=== PATIENT | female | born 1990 | race African-American/Black ===

== ENCOUNTER 2016-08-09 17:57 | Emergency (ER) | payer SELFPAY ==
--- NOTE | 2016-08-09 18:03 | ER Document Report ---
ED Medical Screen (RME) - General Stated Complaint: HEADACHE Time seen by provider: 18:01 Mode of Arrival: Ambulatory Information source: Patient Notes: 26-year-old female is to ED for headache. She said that this headache started about a month ago and she'll have it for couple days in a couple days with no headache and then a couple days with headache and this is been going on for months. She states she's been taken Excedrin Migraine for her headaches. She she states she has not seen a doctor if she does not have a local doctor. Last menstrual period 07/19/2016. She has had an increase in sensitivity to light today. She has been nauseated off and on with these headaches. I have greeted and performed a rapid initial assessment of this patient. A comprehensive ED assessment and evaluation of the patient, analysis of test results and completion of medical decision making process will be conducted by an additional ED providers. TRAVEL OUTSIDE OF THE [place] IN LAST 30 DAYS: No - Related Data Allergies/Adverse Reactions: No Known Allergies Allergy (Verified 08/09/16 17:58) Past Medical History Pulmonary Medical History: Reports: Hx Asthma - Immunizations Hx Diphtheria, Pertussis, Tetanus Vaccination: Yes Physical Exam - Vital signs Vitals: Temp Pulse Resp BP Pulse Ox 97.9 F 77 14 130/85 H 100 08/09/16 18:00 08/09/16 18:00 08/09/16 18:00 08/09/16 18:00 08/09/16 18:00 Course - Vital Signs Vital signs: Temp Pulse Resp BP Pulse Ox 97.9 F 77 14 130/85 H 100 08/09/16 18:00 08/09/16 18:00 08/09/16 18:00 08/09/16 18:00 08/09/16 18:00
[2016-08-09] MEDS ORDERED: DIPHENHYDRAMINE HCL 25 MG CAPSULE PO ONE (18:04)
[2016-08-09] MEDS ORDERED: IBUPROFEN 600 MG TABLET PO ONE (18:04)
[2016-08-09] MEDS ORDERED: PROCHLORPERAZINE MALEATE 10 MG TABLET PO ONE (18:04)
[2016-08-09] MEDS ORDERED: BUTALB/ACETAMINOPHEN/CAFFEINE 1 TAB EACH PO ONE (18:55)
--- NOTE | 2016-08-09 18:58 | ER Document Report ---
ED General - General Chief Complaint: Headache >24 hrs old Stated Complaint: HEADACHE Mode of Arrival: Ambulatory TRAVEL OUTSIDE OF THE [place] IN LAST 30 DAYS: No - HPI Patient complains to provider of: headache Notes: Patient coming in for evaluation of headache patient states headache intermittent ongoing for months denies trauma fever chills nausea vomiting diarrhea. Patient states she's not been evaluated for headaches states most pain is in the front of her head and does go also into the back of her head down her neck. Patient otherwise nontoxic looking states she has no relief with Excedrin at home. - Related Data Allergies/Adverse Reactions: No Known Allergies Allergy (Verified 08/09/16 17:58) Past Medical History - General Information source: Patient - Social History Smoking Status: Never Smoker Chew tobacco use (# tins/day): No Frequency of alcohol use: None Drug Abuse: None Family History: Reviewed & Not Pertinent Patient has suicidal ideation: No Patient has homicidal ideation: No Pulmonary Medical History: Reports: Hx Asthma Renal/ Medical History: Denies: Hx Peritoneal Dialysis Surgical Hx: Negative - Immunizations Hx Diphtheria, Pertussis, Tetanus Vaccination: Yes Review of Systems - Review of Systems Constitutional: No symptoms reported EENT: No symptoms reported Cardiovascular: No symptoms reported Respiratory: No symptoms reported Gastrointestinal: No symptoms reported Genitourinary: No symptoms reported Female Genitourinary: No symptoms reported Musculoskeletal: No symptoms reported Skin: No symptoms reported Hematologic/Lymphatic: No symptoms reported Neurological/Psychological: Headaches -: Yes All other systems reviewed and negative Physical Exam - Vital signs Vitals: Temp Pulse Resp BP Pulse Ox 97.9 F 77 14 130/85 H 100 08/09/16 18:00 08/09/16 18:00 08/09/16 18:00 08/09/16 18:00 08/09/16 18:00 Interpretation: Normal - General General appearance: Appears well, Alert - HEENT Head: Normocephalic, Atraumatic Eyes: Normal Pupils: PERRL - Respiratory Respiratory status: No respiratory distress Chest status: Nontender Breath sounds: Normal Chest palpation: Normal - Cardiovascular Rhythm: Regular Heart sounds: Normal auscultation Murmur: No - Abdominal Inspection: Normal Distension: No distension Bowel sounds: Normal Tenderness: Nontender Organomegaly: No organomegaly - Back Back: Normal, Nontender - Extremities General upper extremity: Normal inspection, Nontender, Normal color, Normal ROM , Normal temperature General lower extremity: Normal inspection, Nontender, Normal color, Normal ROM , Normal temperature, Normal weight bearing. No: Elsie's sign - Neurological Neuro grossly intact: Yes Cognition: Normal Orientation: AAOx4 Osse[place] Coma Scale Eye Opening: Spontaneous Anthony Coma Scale Verbal: Oriented [place] Coma Scale Motor: Obeys Commands Anthony Coma Scale Total: 15 Speech: Normal Motor strength normal: LUE, RUE, LLE, RLE Sensory: Normal - Psychological Associated symptoms: Normal affect, Normal mood - Skin Skin Temperature: Warm Skin Moisture: Dry Skin Color: Normal Course - Re-evaluation Re-evalutation: 08/09/16 22:55 The patient presents with headache without signs of FREIGHT TRUCKER bleed, stroke, infection , or other serious etiology. The patient is neurologically intact. Given the extremely low risk of these diagnoses further testing and evaluation for these possibilities does not appear to be indicated at this time. The patient has been instructed to return if the symptoms worsen or change in any way.. - Vital Signs Vital signs: Temp Pulse Resp BP Pulse Ox 98.2 F 82 16 116/78 100 08/09/16 19:34 08/09/16 19:34 08/09/16 19:34 08/09/16 19:34 08/09/16 19:34 Discharge - Discharge Clinical Impression: Headache Qualifiers: Headache type: tension-type Headache chronicity pattern: unspecified pattern Intractability: not intractable Qualified Code(s): G44.209 - Tension-type headache, unspecified, not intractable Condition: Good Disposition: HOME, SELF-CARE Instructions: Tension Headache ([facility]) Additional Instructions: Follow-up with your primary care physician. Prescriptions: Butalb/Acetaminophen/Caffeine [Fioricet 50-300-40 mg Capsule] 1 cap PO Q4 PRN # 20 cap PRN Reason: Forms: Return to Work
[2016-08-09 19:37] VITALS: BP 116/78
== END 2016-08-09 19:36 | disposition home or self-care (01) ==
LOC: ER 17:57
DX: G44.209 Tension-type headache, unspecified, not intractable (principal)
CPT/HCPCS: 99283; J3490; S0183

== ENCOUNTER 2019-04-20 07:49 | Emergency (ER) | payer SELFPAY ==
[2019-04-20 07:58] VITALS: BP 113/77
[2019-04-20] MEDS ORDERED: LIDOCAINE 2% VISCOUS SOLN 20 ML UDCUP PO ONE (08:34)
[2019-04-20] MEDS ORDERED: PENICILLIN V POTASSIUM 500 MG TABLET PO ONE (08:35)
--- NOTE | 2019-04-20 08:41 | ER Document Report ---
HPI - HPI Patient complains to provider of: dental pain Time Seen by Provider: 04/20/19 08:05 Pain Level: 3 Context: 29-year-old healthy female presents the emergency department chief complaint of dental pain that started yesterday. Patient noticed that she was a little sore and the pain subsided but then her face started to swell up on the right side. Patient states that she then woke up this morning with swelling and pain prompting her to get seen in the emergency department. She states that the #3 tooth is broken off but she also has some decay of the #5 tooth on the bugle side at the gingival border. Patient denies any difficulty swallowing, denies fevers or chills, denies nausea or vomiting, denies any tongue swelling, denies any neck stiffness, currently denies any swelling. No other complaints - REPRODUCTIVE LMP: 04/04/19 Reproductive: DENIES: : Past Medical History - Social History Smoking Status: Never Smoker Chew tobacco use (# tins/day): No Frequency of alcohol use: None Drug Abuse: None Family History: Reviewed & Not Pertinent Patient has suicidal ideation: No Patient has homicidal ideation: No Pulmonary Medical History: Reports: Hx Asthma Renal/ Medical History: Denies: Hx Peritoneal Dialysis - Immunizations Hx Diphtheria, Pertussis, Tetanus Vaccination: Yes Vertical Provider Document - CONSTITUTIONAL Notes: PHYSICAL EXAMINATION: Reviewed vital signs and charting by RN GENERAL: Alert, interacts well. No acute distress. HEAD: Normocephalic, atraumatic. EYES: Pupils equal and round. Extraocular movements intact. ENT: Oral mucosa moist, tongue midline. #3 tooth broken off at the root, crown is completely missing, #5 tooth in the buccal side with some decay. NECK: Full range of motion. Trachea midline. LUNGS: Clear to auscultation bilaterally, no wheezes, rales, or rhonchi. No respiratory distress. HEART: Regular rate and rhythm. No murmur ABDOMEN: soft, non-tender. No distention. Bowel sounds present EXTREMITIES: Moves all 4 extremities spontaneously. No edema, No cyanosis. PSYCH: Normal affect, normal mood. SKIN: Warm, dry, normal turgor. No rashes or lesions noted. - INFECTION CONTROL TRAVEL OUTSIDE OF THE [place] IN LAST 30 DAYS: No Course - Re-evaluation Re-evalutation: 04/20/19 08:43 Presentation is most consistent with likely an infected tooth. Airway is patent. Vitals within normal limits. Patient is able swallow without any difficulty. There is no significant facial swelling. No evidence of Frederick angina, apical abscess, or airway obstruction. Patient will be started on antibiotics. I've instructed to follow-up with dentistry as earliest ability for definitive management. At this time will discharge with return precautions and follow-up recommendations. Verbal discharge instructions given a the bedside and opportunity for questions given. Medication warnings reviewed. Patient is in agreement with this plan and has verbalized understanding of return precautions and the need for primary care follow-up in the next 24-72 hours. - Vital Signs Vital signs: Temp Pulse Resp BP Pulse Ox 97.4 F 73 16 113/77 100 04/20/19 07:50 04/20/19 07:50 04/20/19 07:50 04/20/19 07:50 04/20/19 07:50 Discharge - Discharge Clinical Impression: Tooth infection, Pain, dental Condition: Good Disposition: HOME, SELF-CARE Additional Instructions: You have been seen for dental pain. It is very important that you follow-up with a dentist for definitive care. You have been given a prescription of penicillin and you should take 1 tablet in the morning and 1 in the evening for 7 days. Please return if you develop fever greater than 101, swelling in your face, vomiting, difficulty breathing or swallowing, or any other symptoms that are concerning to you. For pain you should take ibuprofen 600 mg every 6 hours as needed. Prescriptions: Benzonatate [Tessalon Perles 100 mg Capsule] 100 mg PO Q8HP PRN #40 capsule PRN Reason: Penicillin V Potassium [Penicillin Vk 500 mg Tablet] 500 mg PO BID #14 tablet
== END 2019-04-20 08:48 | disposition home or self-care (01) ==
LOC: ER 07:49
DX: K04.7 Periapical abscess without sinus (principal); K08.9 Disorder of teeth and supporting structures, unspecified
CPT/HCPCS: 99282; J3490

== ENCOUNTER 2019-06-26 22:32 | Emergency (ER) | payer SELFPAY ==
[2019-06-26] MEDS ORDERED: IPRATROPIUM/ALBUTEROL 0.5-2.5 MG/3 ML AMPUL NEB ONE (22:36)
[2019-06-26] MEDS: ALBUTEROL SULFATE 0.083% NEB 2.5 MG/3 ML AMPUL NEB SCH ×2 (22:40→23:06)
[2019-06-26] MEDS ORDERED: METHYLPREDNISOLONE INJ 125 MG/2 ML SDV IM ONE (23:49)
--- NOTE | 2019-06-27 00:35 | RADIOLOGY REPORT (SQ) ---
EXAM DESCRIPTION: XR CHEST 2 VIEWS COMPLETED DATE/TME: 06/26/2019 23:49 CLINICAL HISTORY: 29 years, Female, cough/wheeze COMPARISON: 09/29/2014 NUMBER OF VIEWS: One TECHNIQUE: AP view the chest LIMITATIONS: None. FINDINGS: The lungs are clear. The heart is normal in size. There is no pneumothorax or pleural effusion. The bones are unremarkable. IMPRESSION: No acute cardiopulmonary abnormality copyright 2010 [employer]- All Rights Reserved
[2019-06-27 01:28] VITALS: BP 122/83
[2019-06-27] MEDS ORDERED: ALBUTEROL SULFATE HFA (90 MCG/PUFF) 8 GM MDI (1 MDI/ER DISP) IH ONE (01:36)
--- NOTE | 2019-06-27 01:40 | ER Document Report ---
ED Respiratory Problem - General Chief Complaint: Asthma Exacerbation Stated Complaint: DIFFICULTY BREATHING Time Seen by Provider: 06/27/19 01:23 Notes: Patient is a 29-year-old female that comes to the emergency department for chief complaint of wheezing and difficulty breathing since yesterday. She states that she ran out of her albuterol inhaler but she did have her nebulizer at home, however this did not seem to be helping. She had an occasional cough, denies fever, denies any other complaints. She denies smoking. She denies any other medical problems. She denies . TRAVEL OUTSIDE OF THE [place] IN LAST 30 DAYS: No - Related Data Allergies/Adverse Reactions: No Known Allergies Allergy (Verified 06/26/19 22:42) Home Medications: neb treatments Past Medical History - General Information source: Patient - Social History Smoking Status: Never Smoker Frequency of alcohol use: None Drug Abuse: None Lives with: Family Family History: Reviewed & Not Pertinent Patient has suicidal ideation: No Patient has homicidal ideation: No Pulmonary Medical History: Reports: Hx Asthma Renal/ Medical History: Denies: Hx Peritoneal Dialysis - Immunizations Hx Diphtheria, Pertussis, Tetanus Vaccination: Yes Review of Systems - Review of Systems Constitutional: No symptoms reported EENT: No symptoms reported Cardiovascular: No symptoms reported Respiratory: See HPI Gastrointestinal: No symptoms reported Genitourinary: No symptoms reported Female Genitourinary: No symptoms reported Musculoskeletal: No symptoms reported Skin: No symptoms reported Hematologic/Lymphatic: No symptoms reported Neurological/Psychological: No symptoms reported Physical Exam - Vital signs Vitals: Temp Pulse Resp BP Pulse Ox 97.5 F 108 H 26 H 119/87 H 93 06/26/19 22:37 06/26/19 22:37 06/26/19 22:37 06/26/19 22:37 06/26/19 22:37 - Notes Notes: GENERAL: Alert, interacts well. No acute distress. HEAD: Normocephalic, atraumatic. EYES: Pupils equal, round, and reactive to light. Extraocular movements intact. ENT: Oral mucosa moist, tongue midline. Oropharynx unremarkable. Airway patent. LUNGS: Clear to auscultation bilaterally, no wheezes, rales, or rhonchi. No respiratory distress. HEART: Regular rate and rhythm. No murmur ABDOMEN: Soft, non-tender. Non-distended. EXTREMITIES: Moves all 4 extremities spontaneously. No edema, normal radial and dorsalis pedis pulses bilaterally. No cyanosis. BACK: no cervical, thoracic, lumbar midline tenderness. No saddle anesthesia, normal distal neurovascular exam. Moves all extremities in full range of motion. NEUROLOGICAL: Alert and oriented x3. Normal speech. Cranial nerves II through XII grossly intact. PSYCH: Normal affect, normal mood. SKIN: Warm, dry, normal turgor. No rashes or lesions noted. Course - Re-evaluation Re-evalutation: It was reported to me that initially patient was wheezing and had an oxygen saturation of 93% on room air. On my evaluation she has already received the steroids, already had DuoNeb treatment, her lungs are clear, she has no wheezing, her oxygen saturation was rechecked and is 100%. She has no current symptoms. I did review chest x-ray from triage as well and this was normal. Patient states she is completely better and she is asking to leave. Presentation is most consistent with asthma exacerbation, discussed treatments, follow-up, return precautions. Patient states understanding and agreement with plan. - Vital Signs Vital signs: Temp Pulse Resp BP Pulse Ox 97.9 F 83 18 122/83 100 06/27/19 01:58 06/27/19 01:58 06/27/19 01:58 06/27/19 01:58 06/27/19 01:58 Discharge - Discharge Clinical Impression: Wheezing Asthma exacerbation Qualifiers: Asthma severity: moderate Asthma persistence: unspecified Qualified Code(s): J45.901 - Unspecified asthma with (acute) exacerbation Condition: Stable Disposition: HOME, SELF-CARE Additional Instructions: Your evaluation is consistent with an asthma exacerbation. Take the prednisone as prescribed to completion. Use your albuterol inhaler and spacer for the albuterol nebulizer as needed as prescribed. Follow-up with primary care for additional management. Return for any concerning or worsening symptoms including difficulty breathing, fever, or any other concerning or worsening symptoms. Prescriptions: Prednisone [Deltasone 20 mg Tablet] 3 tab PO DAILY 5 Days #15 tablet Albuterol Sulfate [Proair HFA Inhalation Aerosol 8.5 gm MDI] 2 puff IH Q4H PRN #1 mdi PRN Reason:
== END 2019-06-27 01:59 | disposition home or self-care (01) ==
LOC: ER 06-27 01:55
DX: J45.901 Unspecified asthma with (acute) exacerbation (principal); R05 Cough
CPT/HCPCS: 94640 ×2; 99284; 96372; 71046; J2930; J7620

== ENCOUNTER 2019-09-18 19:25 | Emergency (ER) | payer SELFPAY ==
[2019-09-18] MEDS ORDERED: IPRATROPIUM/ALBUTEROL 0.5-2.5 MG/3 ML AMPUL NEB ONE (19:41)
[2019-09-18] MEDS ORDERED: METHYLPREDNISOLONE INJ 125 MG/2 ML SDV IV ONE (19:42)
--- NOTE | 2019-09-18 19:44 | ER Document Report ---
ED Medical Screen (RME) - General Chief Complaint: Asthma Exacerbation Stated Complaint: DIFFICULTY BREATHING Time Seen by Provider: 09/18/19 19:39 Notes: HPI: 29-year-old female with asthma history presenting with 5 days of progressively worsening shortness of breath and wheezing that she believes is her asthma. Has been using an inhaler and her nebulizer at home without resolution of symptoms. No fevers I have greeted and performed a rapid initial assessment of this patient. A comprehensive ED assessment and evaluation of the patient, analysis of test results and completion of the medical decision making process will be conducted by additional ED providers PHYSICAL EXAMINATION: GENERAL: Slightly ill-appearing, well-nourished and in moderate acute distress. HEAD: Atraumatic, normocephalic. EYES: sclera anicteric, conjunctiva are normal. ENT: Moist mucous membranes. NECK: Normal range of motion LUNGS: Patient becomes mildly dyspneic with speaking. Inspiratory and expiratory wheezing in all lung winter. Pulse oximetry 93% on room air mildly hypoxic HEART: 2+ radial pulses bilaterally, mildly tachycardic ABD: limited by positioning for exam in triage. EXTREMITIES: no pitting or edema. No cyanosis. NEUROLOGICAL: No focal neurological deficits. Moves all extremities spontaneously and on command. PSYCH: Normal mood, normal affect. SKIN: Warm, Dry, normal turgor, no rashes or lesions noted. TRAVEL OUTSIDE OF THE [place] IN LAST 30 DAYS: No - Related Data Allergies/Adverse Reactions: No Known Allergies Allergy (Verified 09/18/19 19:39) Home Medications: albuterol Past Medical History Pulmonary Medical History: Reports: Hx Asthma Renal/ Medical History: Denies: Hx Peritoneal Dialysis - Immunizations Hx Diphtheria, Pertussis, Tetanus Vaccination: Yes Physical Exam - Vital signs Vitals: Temp Pulse Resp BP Pulse Ox 98.0 F 82 22 H 149/91 H 93 09/18/19 19:37 09/18/19 19:37 09/18/19 19:37 09/18/19 19:37 09/18/19 19:37 Course - Vital Signs Vital signs: Temp Pulse Resp BP Pulse Ox 98.0 F 82 22 H 149/91 H 93 09/18/19 19:37 09/18/19 19:37 09/18/19 19:37 09/18/19 19:37 09/18/19 19:37
[2019-09-18 20:35] LABS: ABSOLUTE EOSINOPHILS # (AUTO) 0.4 10^3/uL (0.0-0.6); ABSOLUTE LYMPHOCYTES (AUTO) 1.5 10^3/uL (0.5-4.7); ABSOLUTE MONOCYTES (AUTO) 0.4 10^3/uL (0.1-1.4); BASOPHILS % (AUTO) 0.5 % (0-2); EOSINOPHILS % (AUTO) 9.7 % (0-6); HEMATOCRIT 36.4 % (36.0-47.0); HEMOGLOBIN 12.3 g/dL (12.0-15.5); LYMPHOCYTES % (AUTO) 34.8 % (13-45); MEAN CORPUSCULAR HEMOGLOBIN 30.6 pg (27.0-33.4); MEAN CORPUSCULAR HGB CONC 33.7 g/dL (32.0-36.0); MEAN CORPUSCULAR VOLUME 91 fl (80-97); MONOCYTES % (AUTO) 9.6 % (3-13); PLATELET COUNT 188 10^3/uL (150-450); RED BLOOD COUNT 4.01 10^6/uL (3.72-5.28); SEGMENTED NEUTROPHILS % (AUTO) 45.4 % (42-78); TOTAL CELLS COUNTED % (AUTO) 100 %; WHITE BLOOD COUNT 4.3 10^3/uL (4.0-10.5)
[2019-09-18 21:01] LABS: ALBUMIN 4.8 g/dL (3.5-5.0); ALKALINE PHOSPHATASE 66 U/L (38-126); ANION GAP 12 (5-19); ASPARTATE AMINO TRANSFERASE 28 U/L (14-36); BILIRUBIN,DIRECT 0.2 mg/dL (0.0-0.4); BILIRUBIN,TOTAL 0.6 mg/dL (0.2-1.3); BLOOD UREA NITROGEN 10 mg/dL (7-20); CALCIUM 10.1 mg/dL (8.4-10.2); CARBON DIOXIDE 25 mmol/L (22-30); CHLORIDE 103 mmol/L (98-107); GLUCOSE 113 mg/dL (75-110); POTASSIUM 3.4 mmol/L (3.6-5.0); TOTAL PROTEIN 8.7 g/dL (6.3-8.2)
[2019-09-18] MEDS ORDERED: METHYLPREDNISOLONE INJ 125 MG/2 ML SDV ONE (21:52)
--- NOTE | 2019-09-18 22:41 | RADIOLOGY REPORT (SQ) ---
EXAM DESCRIPTION: XR CHEST 1 VIEW COMPLETED DATE/TME: 09/18/2019 21:53 CLINICAL HISTORY: 29 years, Female, SOB COMPARISON: Prior study from 06/27/2019 NUMBER OF VIEWS: One TECHNIQUE: Single frontal view of the chest was obtained portably LIMITATIONS: None. FINDINGS: Cardiac and mediastinal contours are normal in appearance. Lungs are clear. No pleural effusion or pneumothorax. IMPRESSION: No acute disease. copyright 2010 [employer]- All Rights Reserved
[2019-09-18] MEDS ORDERED: ALBUTEROL SULFATE HFA (90 MCG/PUFF) 8 GM MDI (1 MDI/ER DISP) IH ONE (22:45)
--- NOTE | 2019-09-18 22:57 | ER Document Report ---
HPI - HPI Patient complains to provider of: cough Time Seen by Provider: 09/18/19 22:40 Onset: Other - 5 days Pain Level: 3 Context: Patient presents complaining of cough shortness of breath and wheezing for the past 5 days. Patient states that she ran out of her asthma medications at home and feels that she is having an asthma flareup. Patient states these are typical symptoms of when she has had flareups in the past. Patient denies any fever. Patient denies any chest discomfort. Associated Symptoms: Nonproductive cough. denies: Chest pain, Fever, Nausea, Vomiting Exacerbated by: Denies Relieved by: Denies Similar symptoms previously: Yes Recently seen / treated by doctor: No - ROS ROS below otherwise negative: Yes Systems Reviewed and Negative: Yes All other systems reviewed and negative - CONSTITUTIONAL Constitutional: DENIES: Fever, Chills - CARDIOVASCULAR Cardiovascular: DENIES: Chest pain - RESPIRATORY Respiratory: REPORTS: Coughing - GASTROINTESTINAL Gastrointestinal: DENIES: Patient vomiting - REPRODUCTIVE Reproductive: DENIES: : - MUSCULOSKELETAL Musculoskeletal: DENIES: Back Pain - DERM Skin Color: Normal Skin Problems: None Past Medical History - General Information source: Patient - Social History Smoking Status: Never Smoker Frequency of alcohol use: None Drug Abuse: None Occupation: none Family History: Reviewed & Not Pertinent Patient has suicidal ideation: No Patient has homicidal ideation: No Pulmonary Medical History: Reports: Hx Asthma Renal/ Medical History: Denies: Hx Peritoneal Dialysis Surgical Hx: Negative - Immunizations Hx Diphtheria, Pertussis, Tetanus Vaccination: Yes Vertical Provider Document - CONSTITUTIONAL Agree With Documented VS: Yes Exam Limitations: No Limitations General Appearance: WD/WN, No Apparent Distress - INFECTION CONTROL TRAVEL OUTSIDE OF THE [place] IN LAST 30 DAYS: No - HEENT HEENT: Atraumatic, Normal ENT Exam, Normocephalic - NECK Neck: Normal Inspection, Supple - RESPIRATORY Respiratory: Breath Sounds Normal, No Respiratory Distress, Chest Non-Tender. negative: Rales, Rhonchi, Wheezing - CARDIOVASCULAR Cardiovascular: Regular Rate, Regular Rhythm, No Murmur - BACK Back: Normal Inspection - MUSCULOSKELETAL/EXTREMETIES Musculoskeletal/Extremeties: MAEW - NEURO Level of Consciousness: Awake, Alert, Appropriate Motor/Sensory: No Motor Deficit - DERM Integumentary: Warm, Dry, No Rash Course - Re-evaluation Re-evalutation: 02/28/20 22:54 Respirations even unlabored, patient nontoxic in appearance. Provider is evaluating patient after she is already had a nebulizer treatment. Wheezing resolved at this time. Patient appears stable for discharge at this time. Good return precautions discussed. Patient verbalized understanding and agrees with discharge plan of care. - Vital Signs Vital signs: Temp Pulse Resp BP Pulse Ox 98.0 F 82 17 110/78 100 09/18/19 19:37 09/18/19 19:37 09/18/19 22:04 09/18/19 22:04 09/18/19 22:04 - Laboratory Result Diagrams: 09/18/19 20:14 09/18/19 20:14 Laboratory results interpreted by me: 09/18/19 09/18/19 20:14 20:14 Eos % (Auto) 9.7 H Potassium 3.4 L Glucose 113 H Total Protein 8.7 H 09/18/19 22:55 Labs- Entire Visit 09/18/19 09/18/19 20:14 20:14 WBC 4.3 RBC 4.01 Hgb 12.3 Hct 36.4 MCV 91 MCH 30.6 MCHC 33.7 RDW 13.0 Plt Count 188 Lymph % (Auto) 34.8 [place] % (Auto) 9.6 Eos % (Auto) 9.7 H Baso % (Auto) 0.5 Absolute Neuts (auto) 2.0 Absolute Lymphs (auto) 1.5 Absolute Monos (auto) 0.4 Absolute Eos (auto) 0.4 Absolute Basos (auto) 0.0 Seg Neutrophils % 45.4 Sodium 140.0 Potassium 3.4 L Chloride 103 Carbon Dioxide 25 Anion Gap 12 BUN 10 Creatinine 0.95 Est GFR ( Amer) > 60 Est GFR (MDRD) Non-Af > 60 Glucose 113 H Calcium 10.1 Magnesium 2.2 Total Bilirubin 0.6 Direct Bilirubin 0.2 Neonat Total Bilirubin Not Reportable Neonat Direct Bilirubin Not Reportable Neonat Indirect Bili Not Reportable AST 28 ALT 16 Alkaline Phosphatase 66 Total Protein 8.7 H Albumin 4.8 - Diagnostic Test Radiology reviewed: Reports reviewed Discharge - Discharge Clinical Impression: Asthma exacerbation Qualifiers: Asthma severity: unspecified severity Asthma persistence: unspecified Qualified Code(s): J45.901 - Unspecified asthma with (acute) exacerbation Condition: Stable Disposition: HOME, SELF-CARE Additional Instructions: Return immediately for any new or worsening symptoms Followup with your primary care provider, call tomorrow to make a followup appointment ASTHMA: You have been diagnosed as having asthma. This is a condition where there is episodic tightness in the bronchial tubes. Allergies, infections, and polluted or cold air may be contributing factors. Emergency treatment of a severe asthma attack may include adrenaline shots, or bronchodilator aerosol. You may feel lightheaded, have a decreased exercise tolerance and a rapid pulse for an hour or two. Rest and get plenty of fluids. Home treatment of asthma requires bronchodilator drugs. These can be administered by injection, inhalation, or by mouth. Antibiotics and corticosteroids may be required for some patients. You should avoid chemical fumes, dusts, pollens, and exercising in very cold or dry air. If you smoke, stop!! If you develop a fever, increased wheezing, chest pain, or severe shortness of breath, you should contact the doctor immediately. STEROID MEDICATION: You have been given an injection of or oral medicine of the cortis one/steroid class. This medication is used to control inflammation or allergy. Andrea t is usually only given for a short period of time, until the acute process subsides. There are usually no side effects from short-term use of cortisone-like medications. Some persons feel an increased sense of well-being and are not sleepy at bedtime. Long-term use of cortisone medications is best avoided, unless required for a severe condition. If your condition does not remit, or relapses after the course of corticosteroid medication, you should consult your physician. INHALED BRONCHODILATORS: You have received treatment(s) of and/or prescription for an inhaled bronchodilator -- a medication which stimulates the airways in the lung to dilate. This improves the flow of air in asthma, bronchitis, and emphysema. These medicines have some similarity to adrenaline, and can cause similar side effects: shakiness, racing heart, and a sense of nervousness. These side effects decrease with time. Contact your doctor if these side effects are severe. Do not over-use the medicine. Too-frequent use of the inhaler may make it ineffective. Call your doctor if the inhaler is not controlling your symptoms at the prescribed doses. USE OF ACETAMINOPHEN: Acetaminophen may be taken for pain relief or fever control. It's much safer than aspirin, offering a wider range of "safe" dosages. It is safe during . Some brand names are Tylenol, Panadol, Datril, Anacin 3, Tempra, and Liquiprin. Acetaminophen can be repeated every four hours. The following are maximum recommended dosages: FOLLOW-UP CARE: If you have been referred to a physician for follow-up care, call the physicians office for an appointment as you were instructed or within the next two days. If you experience worsening or a significant change in your symptoms, notify the physician immediately or return to the Emergency Department at any time for re-evaluation. Prescriptions: Prednisone [Deltasone 20 mg Tablet] 3 tab PO DAILY 4 Days #12 tablet Albuterol Sulfate [Ventolin 0.083% Neb 2.5 mg/3 ml Ampul] 1 vial NEB Q4 PRN #30 vial PRN Reason: Referrals: [facility] [Provider Group] - Follow up as needed [facility] [Provider Group] - Follow up as needed
[2019-09-18 23:28] VITALS: BP 106/74
== END 2019-09-18 23:32 | disposition home or self-care (01) ==
LOC: ER 19:25
DX: J45.901 Unspecified asthma with (acute) exacerbation (principal)
CPT/HCPCS: 94640; 99285; 96374; 36415; 83735; 85025; 80053; 71045; J2930; J3490; J7620

== ENCOUNTER 2019-09-29 15:06 | Emergency (ER) | payer SELFPAY ==
[2019-09-29] MEDS ORDERED: IBUPROFEN 600 MG TABLET PO ONE (15:50)
--- NOTE | 2019-09-29 15:54 | ER Document Report ---
ED Respiratory Problem - General Chief Complaint: Cold Symptoms Stated Complaint: COLD SYMPTOMS Time Seen by Provider: 09/29/19 15:47 Primary Care Provider: [facility] [Provider Group] - Follow up as needed [facility] [Provider Group] - Follow up as needed Mode of Arrival: Ambulatory Information source: Patient Notes: 29-year-old female presented to ED for complaint of cough and fever. She states this started yesterday. She does have a history of asthma. She states she does not smoke. Patient is alert oriented respirations regular nonlabored speaking in full sentences. TRAVEL OUTSIDE OF THE [place] IN LAST 30 DAYS: No - HPI Patient complains to provider of: Cough, Other Onset: Yesterday - Fever Initiating Event: URI, Other - Flulike symptoms Quality of pain: Achy Severity: Mild Pain Level: 1 Cough: Nonproductive Sputum amount: None Associated symptoms: Fever, PND, Runny nose, Other - Body aches Similar symptoms previously: Yes Recently seen / treated by doctor: No - Related Data Allergies/Adverse Reactions: No Known Allergies Allergy (Verified 09/29/19 15:46) Past Medical History - General Information source: Patient - Social History Smoking Status: Never Smoker Frequency of alcohol use: None Drug Abuse: None Family History: Reviewed & Not Pertinent Patient has suicidal ideation: No Patient has homicidal ideation: No - Past Medical History Cardiac Medical History: Reports: None Pulmonary Medical History: Reports: Hx Asthma EENT Medical History: Reports: None Neurological Medical History: Reports: None Endocrine Medical History: Reports: None Renal/ Medical History: Reports: None Malignancy Medical History: Reports: None GI Medical History: Reports: None Musculoskeletal Medical History: Reports None Skin Medical History: Reports None Psychiatric Medical History: Reports: None Traumatic Medical History: Reports: None Infectious Medical History: Reports: None Surgical Hx: Negative Past Surgical History: Reports: None - Immunizations Immunizations up to date: Yes Hx Diphtheria, Pertussis, Tetanus Vaccination: Yes Review of Systems - Review of Systems Constitutional: Chills, Fever, Recent illness EENT: No symptoms reported, Nose discharge, Sinus discharge Cardiovascular: No symptoms reported Respiratory: Cough Gastrointestinal: No symptoms reported Genitourinary: No symptoms reported Female Genitourinary: No symptoms reported Musculoskeletal: Muscle pain - Body aches Skin: No symptoms reported Hematologic/Lymphatic: No symptoms reported Neurological/Psychological: No symptoms reported -: Yes All other systems reviewed and negative Physical Exam - Vital signs Vitals: Temp Pulse Resp BP Pulse Ox 100.6 F H 114 H 16 132/84 H 98 09/29/19 15:12 09/29/19 15:12 09/29/19 15:12 09/29/19 15:12 09/29/19 15:12 Interpretation: Normal - General General appearance: Appears well, Alert - HEENT Head: Normocephalic, Atraumatic Eyes: Normal Pupils: PERRL Ears: Normal External canal: Normal Tympanic membrane: Normal Sinus: Normal Nasal: Purulent discharge, Swelling Mouth/Lips: Normal Pharynx: Post nasal drainage Neck: Normal - Respiratory Respiratory status: No respiratory distress Chest status: Nontender Breath sounds: Nonproductive cough Chest palpation: Normal - Cardiovascular Rhythm: Regular Heart sounds: Normal auscultation Murmur: No - Abdominal Inspection: Normal Distension: No distension Bowel sounds: Normal Tenderness: Nontender Organomegaly: No organomegaly - Back Back: Normal, Nontender - Extremities General upper extremity: Normal inspection, Nontender, Normal color, Normal ROM, Normal temperature General lower extremity: Normal inspection, Nontender, Normal color, Normal ROM, Normal temperature, Normal weight bearing. No: Elsie's sign - Neurological Neuro grossly intact: Yes Cognition: Normal Orientation: AAOx4 [place] Coma Scale Eye Opening: Spontaneous [place] Coma Scale Verbal: Oriented [place] Coma Scale Motor: Obeys Commands Anthony Coma Scale Total: 15 Speech: Normal Motor strength normal: LUE, RUE, LLE, RLE Sensory: Normal - Psychological Associated symptoms: Normal affect, Normal mood - Skin Skin Temperature: Warm Skin Moisture: Dry Skin Color: Normal Course - Re-evaluation Re-evalutation: 09/29/19 22:10 After performing a Medical Screening Examination, I estimate there is LOW risk for ACUTE CORONARY SYNDROME, RESPIRATORY FAILURE, SEPSIS OR MENINGITIS, thus I consider the discharge disposition reasonable. I have reevaluated this patient multiple times and no significant life threatening changes are noted. The patient and I have discussed the diagnosis and risks, and we agree with discharging home with close follow-up. We also discussed returning to the Emergency Department immediately if new or worsening symptoms occur. We have discussed the symptoms which are most concerning (e.g., changing or worsening pa in, trouble swallowing or breathing, neck stiffness, fever) that necessitate immediate return. - Vital Signs Vital signs: Temp Pulse Resp BP Pulse Ox 98.7 F 100 18 127/81 H 97 09/29/19 17:25 09/29/19 17:25 09/29/19 17:25 09/29/19 17:25 09/29/19 17:25 Discharge - Discharge Clinical Impression: URI (upper respiratory infection) Qualifiers: URI type: unspecified viral URI Qualified Code(s): J06.9 - Acute upper respi ratory infection, unspecified Disposition: HOME, SELF-CARE Additional Instructions: UPPER RESPIRATORY ILLNESS: You have a viral infection of the respiratory passages -- a "cold." This common infection causes nasal congestion, drainage, and often sore throat and cough. It is highly contagious. The disease usually lasts about 10 to 14 days. There is no "cure" for the viral infection -- it must run its course. If there is a complication, such as bacterial infection in the nose, sinuses, middle ear, or bronchial tubes, antibiotics may be required. The antibiotics won't affect the virus. Drink plenty of fluids. A humidifier may help. An expectorant medication or decongestant may make you more comfortable. Use acetaminophen or ibuprofen for fever or aches. See the doctor if fever persists over two days, if there is any significant worsening of your symptoms, or if you simply fail to improve as expected. You have been recommended treatment with Claritin 10 mg Sudafed 30 mg and Mucinex 600 mg. These are all [id number] medications for cough cold congestion. You do need to call the go to the pharmacist to get the Sudafed from behind the counter please get a little red pills they are more effective. You could also use Flonase which is [id number] 1 spray each nostril twice a day. You could also use salt soda solution gargles. These will help to remove the drainage from the back your throat. Chloraseptic spray was [id number] that will also help with your sore throat. Salt and soda solution gargle 1 quart of water 1 tablespoon of salt 1 teaspoon of baking soda Mixed 3 ingredients together and boil for 1 minute Placed in a covered quart jar Use 1/2 ounce of cold solution to gargle 3 times a day USE OF ACETAMINOPHEN (Tylenol): Acetaminophen may be taken for pain relief or fever control. It's much safer than aspirin, offering a wider range of "safe" dosages. It is safe during . Some brand names are Tylenol, Panadol, Datril, Anacin 3, Tempra, and Liquiprin. Acetaminophen can be repeated every four hours. The following are maximum recommended dosages: >89 pounds or adults 650 mg to 900 mg Acetaminophen can be repeated every four hours. Maximum dose not to exceed 4000 mg a day. FOLLOW-UP CARE: If you have been referred to a physician for follow-up care, call the physicians office for an appointment as you were instructed or within the next two days. If you experience worsening or a significant change in your symptoms, notify the physician immediately or return to the Emergency Department at any time for re-evaluation. Forms: Elevated Blood Pressure, Return to Work Referrals: [facility] [Provider Group] - Follow up as needed [facility] [Provider Group] - Follow up as needed
[2019-09-29 17:15] LABS: A TYPE INFLUENZA AG NEGATIVE (NEGATIVE); B INFLUENZA AG NEGATIVE (NEGATIVE)
[2019-09-29 17:27] VITALS: BP 127/81
== END 2019-09-29 17:42 | disposition home or self-care (01) ==
LOC: ER 15:06
DX: J06.9 Acute upper respiratory infection, unspecified (principal); B97.89 Other viral agents as the cause of diseases classified elsewhere; R05 Cough; R50.9 Fever, unspecified; R09.82 Postnasal drip; R09.89 Other specified symptoms and signs involving the circulatory and respiratory systems; M79.10 Myalgia, unspecified site; J45.909 Unspecified asthma, uncomplicated
CPT/HCPCS: 87804; 99283